=== PATIENT | female | born 1960 | race Two or more races ===

== ENCOUNTER 2018-08-22 10:34 | Emergency (ER) | payer OTHER ==
[~2018-08-22] VITALS: Ht 157.5 cm; Wt 59.9 kg
== END 2018-08-22 17:15 | disposition home or self-care (01) ==
LOC: ER 10:34
DX: K52.9 Noninfective gastroenteritis and colitis, unspecified (principal); N39.0 Urinary tract infection, site not specified

== ENCOUNTER 2020-11-08 14:11 | Emergency (ER) | payer OTHER ==
[~2020-11-08] VITALS: Ht 157.5 cm; Wt 59.0 kg
[2020-11-08] MEDS ORDERED: SYNTHROID112 MCG (14:23)
[2020-11-08] MEDS ORDERED: LEXAPRO5 MG (14:23)
[2020-11-08] MEDS ORDERED: ATORVASTATIN CA20 MG (14:23)
== END 2020-11-08 18:47 | disposition home or self-care (01) ==
LOC: ER 14:11
DX: Z48.02 Encounter for removal of sutures (principal); S01.81XD Laceration without foreign body of other part of head, subsequent encounter

== ENCOUNTER 2021-12-05 10:21 | Outpatient (CLI) | payer OTHER | END 2021-12-05 10:32 | disposition home or self-care (01) | LOC: TOM 10:21 | DX: R10.9 Unspecified abdominal pain (principal); K43.2 Incisional hernia without obstruction or gangrene ==

== ENCOUNTER 2024-06-08 15:10 | Outpatient (CLI) | payer OTHER ==
[~2024-06-08 15:10] MED LIST: ATORVASTATIN CA20 MG; LEXAPRO5 MG; SYNTHROID112 MCG
== END 2024-06-08 15:22 | disposition home or self-care (01) ==
LOC: RAD 15:10
PROVIDERS: ATTEND Chiropractor
DX: M25.562 Pain in left knee (principal)